=== PATIENT | female | born 1935 | race Caucasian/White ===

== ENCOUNTER → 2017-05-27 | Outpatient (CLI) | payer MEDICARE, OTHER ==
--- NOTE | 2017-05-27 15:15 | RAD ---
Exam performed: Nuclear medicine ventilation/perfusion scan. Date of Service: 05/27/17 earlier today. A chest x-ray performed earlier today was also reviewed. Clinical Indication: Shortness of breath, elevated d-dimer. Discussion: Patient was administered 12.0 mCi of xenon-133 and images of the chest were obtained via the gamma camera during inspiration, equilibrium and washout phase. There is symmetric distribution of radiotracer throughout both lungs with symmetric excretion on washout images. Patient was also given 5.5 mCi of technetium 99 MAA and perfusion images of the chest are obtained in various projections. There is symmetric distribution of radiotracer without any photopenic area. No matched or mismatched abnormalities detected. Impression: 1. According to the PIOPED criteria, the study is low probability for pulmonary embolism.
--- NOTE | 2017-05-27 15:16 | RAD ---
Exam performed: 2 views of the chest. Indication: ELEVATED D-DIMER Date of Service:05/27/2017 5:00 PM . Comparison : None available. Findings: PA and lateral radiographs of the chest reveal a borderline enlarged cardiomediastinal contour. Both lungs are hyperinflated with prominent interstitial markings likely chronic. There is a calcified nodule in the right lung base.. No pleural fluid is seen. The visualized osseous structures are unremarkable. Impression: No acute cardiac pulmonary process seen.
== END | disposition home or self-care (01) ==
LOC: NM 14:19
DX: I26.99 Other pulmonary embolism without acute cor pulmonale (principal); R79.1 Abnormal coagulation profile
CPT/HCPCS: 71020; 78582; 96374; A9540; A9558